=== PATIENT | female | born 1995 | race Two or more races ===

== ENCOUNTER 2017-11-22 06:20 | Emergency (ER) | payer OTHER, MEDICAID ==
[~2017-11-22] VITALS: Ht 157.5 cm; Wt 56.7 kg
[~2017-11-22 06:20] MED LIST: DIFLUCAN100 MG ORAL; DOXYCYCLINE MO100 MG ORAL; FLAGYL500 MG ORAL; KEFLEX500 MG ORAL; NITROFURANTOIN100 M2 ORAL
[2017-11-22 06:30] VITALS: BP 123/76
--- NOTE | 2017-11-22 06:40 | Emergency Room Report ---
History of Present Illness General Chief Complaint: Female Urogenital Problems Source: Patient Present Illness HPI Patient presents with suprapubic pain and dysuria. This started on Monday. She's had urinary tract infections in the past and also bacterial vaginosis. She also has some vaginal itching. She doesn't think she is . There's no fever and no back pain. The pain kept her awake this morning and was 8/10 suprapubic and nonradiating aching and with dysuria. She's taken Tylenol but none this morning. She doesn't use control. Last sexual encounter was 2 weeks ago. H/O PID in past. H/O trichomonas. No URI sy, cough, chest pain, NVD, extremity pain, headache. Allergies: Coded Allergies: No Known Allergies (Unverified , 10/29/14) verified Patient History Past Medical History: see triage record Social History: Denies: smoking Social History Narrative works at [employer] Last Menstrual Period: November 07 Now: No Reviewed Nursing Documentation: PMH: Agreed; PSxH: Agreed Nursing Documentation-PMH Past Medical History: No Stated History Hx Gastrointestinal Problems: No - PID 10/2014 Review of Systems Constitutional: Reports: see HPI Gastrointestinal: Reports: see HPI Genitourinary: Reports: see HPI Musculoskeletal: Reports: see HPI Skin: Denies: rash All Other Systems: negative except mentioned in HPI Physical Exam Vital Signs Date Time Temp Pulse Resp B/P (MAP) Pulse Ox O2 Delivery O2 Flow Rate FiO2 11/22/17 06:23 97.7 84 18 123/76 98 Room Air 97.7 General Appearance: well appearing, no apparent distress Head: normocephalic, atraumatic Eyes: bilateral eye normal inspection, bilateral eye PERRL ENT: hearing grossly normal, normal voice, moist mucus membranes Neck: full range of motion, supple Respiratory: no respiratory distress, speaking full sentences Cardiovascular #1: normal peripheral pulses Cardiovascular #2: 2+ radial (R) Gastrointestinal: normal inspection, normal bowel sounds, soft, no guarding, no rebound, scaphoid Genitourinary: no CVA tenderness, ext genitalia/vag normal, uterus normal, other - slight d/c yellow and white, no inflammation Musculoskeletal: no calf tenderness Neurologic: normal inspection, alert, normal gait, grossly normal Psychiatric: mood/affect normal Skin: no rash Medical Decision Making Diagnostic Impression: Primary Impression: UTI (urinary tract infection) Qualified Codes: N30.00 - Acute cystitis without hematuria ER Course The patient presents with dysuria and suprapubic pain. Differential includes UTI, bacterial vaginosis, pelvic inflammatory disease, ovarian cyst amongst others. She'll be evaluated with a urinalysis urine and wet mount. Pelvic exam will be performed. UA with pyuria. Wet prep negative. Based on pelvic exam, patient needs coverage for possible yeast. Improved and decreased pain. Patient stable for outpatient observation and treatment. Labs Test 11/22/17 06:28 Urine Color Pale yellow Urine Appearance Slightly cloudy Urine pH 6.5 (4.5-8.0) Urine Specific [place] 1.015 (1.005-1.035) Urine Protein 2+ (NEGATIVE) Urine Glucose (UA) Negative (NEGATIVE) Urine Ketones Negative (NEGATIVE) Urine Occult Blood 5+ (NEGATIVE) Urine Nitrite Negative (NEGATIVE) Urine Bilirubin Negative (NEGATIVE) Urine Urobilinogen Normal MG/DL (0.0-1.0) Urine Leukocyte Esterase 3+ (NEGATIVE) Urine RBC 20-30 /HPF (0 - 2) Urine WBC 30-40 /HPF (0 - 2) Urine Squamous Epithelial Cells Few /LPF (NONE/OCC) Urine Bacteria Few /HPF (NONE) Urine HCG, Qualitative Negative (NEGATIVE) Last Vital Signs Date Time Temp Pulse Resp B/P (MAP) Pulse Ox O2 Delivery O2 Flow Rate FiO2 11/22/17 08:25 97.7 75 18 120/72 98 Room Air 97.7 Status: improved Disposition: HOME, SELF-CARE Condition: Improved Scripts Clotrimazole (GYNE-LOTRIMIN*) 45 Gm Cream.appl 1 APPLIC VG QHS for 7 Days, #45 GM 0 Refills Prov: Serge Yadav M.D. 11/22/17 Phenazopyridine Hcl* (PYRIDIUM*) 100 Mg Tablet 100 MG ORAL THREE TIMES A DAY, #9 TAB Prov: Serge Yadav M.D. 11/22/17 Nitrofurantoin Monohyd/M-Cryst* (MACROBID 100 MG*) 100 Mg Capsule 100 MG ORAL EVERY 12 HOURS, #14 CAP Prov: Serge Yadav M.D. 11/22/17 Serge Yadav M.D. November 22, 2017 06:39
[2017-11-22 06:55] LABS: APPEARANCE,URINE SLIGHTLY CLOUDY; BILIRUBIN, URINE NEGATIVE (NEGATIVE); COLOR,URINE PALE YELLOW; GLUCOSE, URINE (UA) NEGATIVE (NEGATIVE); KETONES,URINE NEGATIVE (NEGATIVE); LEUKOCYTE ESTERASE ,URINE 3+ (NEGATIVE); NITRITE,URINE NEGATIVE (NEGATIVE); PH,URINE 6.5 (4.5-8.0); PROTEIN,URINE 2+ (NEGATIVE); UROBILINOGEN,URINE NORMAL MG/DL (0.0-1.0)
[2017-11-22] MEDS ORDERED: NITROFURANTOIN100 M2 ORAL (07:15)
[2017-11-22] MEDS ORDERED: PHENAZOPYRIDIN100 MG ORAL (07:15)
[2017-11-22] MEDS ORDERED: GYNE-LOTRIMIN45 GM VG (08:10)
[2017-11-22 08:25] VITALS: BP 120/72
== END 2017-11-22 08:26 | disposition home or self-care (01) ==
LOC: EMR 06:37
DX: N39.0 Urinary tract infection, site not specified (principal)
CPT/HCPCS: 81003; 81025; 87086; 87181; 87210; 99282

== ENCOUNTER 2018-02-20 13:42 | Emergency (ER) | payer MEDICAID, OTHER ==
[~2018-02-20] VITALS: Ht 160 cm; Wt 57.2 kg
[~2018-02-20 13:42] MED LIST changes: +GYNE-LOTRIMIN45 GM VG; +PHENAZOPYRIDIN100 MG ORAL
[2018-02-20 13:55] VITALS: BP 110/69
--- NOTE | 2018-02-20 14:06 | Emergency Room Report ---
History of Present Illness General Chief Complaint: Lower Back Pain or Injury Source: Patient Present Illness HPI 22-year-old female patient presents ER complaining of vaginal discharge for the past 3 days. Reports it is white in color, reports extreme pruritus. Also complains of dysuria during this time. Reports low back pain during this time. Denies acute injury or trauma. Denies fever, chest pain, shortness of breath , abdominal pain, vomiting. Denies hematuria. Reports last menstrual period was normal for her. Reports recently tested for STI, tests were negative. Reports last menstrual period was normal for her. Allergies: Coded Allergies: No Known Allergies (Unverified , 10/29/14) verified Patient History Past Medical History: see triage record Last Menstrual Period: 01/28/18 Now: No Reviewed Nursing Documentation: PMH: Agreed; PSxH: Agreed Nursing Documentation-PMH Past Medical History: No Stated History Hx Gastrointestinal Problems: No - PID 10/2014 Review of Systems All Other Systems: negative except mentioned in HPI Physical Exam Vital Signs Date Time Temp Pulse Resp B/P (MAP) Pulse Ox O2 Delivery O2 Flow Rate FiO2 02/20/18 13:52 98.7 77 18 112/72 96 Room Air 98.8 Sp02 EP Interpretation: reviewed, normal General Appearance: well appearing, no apparent distress, alert, GCS 15, non- toxic Head: normocephalic, atraumatic Eyes: bilateral eye normal inspection, bilateral eye PERRL ENT: hearing grossly normal, normal pharynx, no angioedema, normal voice, uvula midline, moist mucus membranes Neck: full range of motion Respiratory: lungs clear, normal breath sounds, no rhonchi, no respiratory distress, no accessory muscle use, no wheezing, speaking full sentences Cardiovascular #1: regular rate, rhythm, no edema Gastrointestinal: non tender, soft, no mass, non-distended, no guarding, no rebound Genitourinary: no CVA tenderness Musculoskeletal: back normal, digits/nails normal, gait/station normal, normal range of motion, non-tender Neurologic: alert, oriented x3, responsive, motor strength/tone normal, SLR negative, sensory intact Psychiatric: mood/affect normal Skin: no rash Medical Decision Making PA Attestation Dr. Pina is my supervising Physician whom patient management has been discussed with. Diagnostic Impression: Primary Impression: UTI (urinary tract infection) Additional Impression: Yeast infection ER Course Pt presents to ED c/o vaginal discharge DDX considered but are not limited to cystitis, pyelonephritis, STI, vaginitis, , yeast infection, bacterial vaginosis. VITAL SIGNS are WNL, patient is afebrile. Ordered UA, urine and fluconazole. ER COURSE patient history consistent with yeast infection, will provide fluconazole in the ER. no recent injury or trauma, low back pain likely related to urinary symptoms, does not require x-ray at this time. UA results show positive bacteria, WBCs, and leukocyte esterase, indicate UTI, will treat with abx. urine negative. If concern for STI, followup with STI clinic for testing and treatment. Denies STI concern. back pain likely related to UTI. Patient is resting comfortably in chair, nontoxic appearing, in no acute distress. Patient states they feel better and is ready to go home. DISCHARGE -Rx provided for Keflex Patient is stable for discharge. Patient resting comfortably, in no acute distress, nontoxic appearing, talking without difficulty. Will provide with patient care instructions and any necessary prescriptions. Patient understands and agrees to treatment plan. Patient encouraged to drink plenty of fluids. Patient to take medication as instructed. Care plan and follow-up instructions provided. Patient questions asked and answered. Reports understanding and agreement to treatment plan. Patient instructed to follow-up with primary care provider in 3 - 5 days. ER precautions given. Patient instructed to return to ER immediately for any new or worsening of symptoms. Including but not limited to fever, abdominal pain , intractable vomiting. - Please note that this Emergency Department Report was dictated using [employer] review specialist technology software, occasionally this can lead to erroneous entry secondary to interpretation by the dictation equipment. Labs Test 02/20/18 14:12 Urine Color Pale yellow Urine Appearance Slightly cloudy Urine pH 7 (4.5-8.0) Urine Specific [place] 1.010 (1.005-1.035) Urine Protein Negative (NEGATIVE) Urine Glucose (UA) Negative (NEGATIVE) Urine Ketones Negative (NEGATIVE) Urine Occult Blood 2+ (NEGATIVE) Urine Nitrite Negative (NEGATIVE) Urine Bilirubin Negative (NEGATIVE) Urine Urobilinogen Normal MG/DL (0.0-1.0) Urine Leukocyte Esterase 3+ (NEGATIVE) Urine RBC 5-10 /HPF (0 - 2) Urine WBC 10-15 /HPF (0 - 2) Urine Squamous Epithelial Cells Moderate /LPF (NONE/OCC) Urine Bacteria Moderate /HPF (NONE) Urine HCG, Qualitative Negative (NEGATIVE) Last Vital Signs Date Time Temp Pulse Resp B/P (MAP) Pulse Ox O2 Delivery O2 Flow Rate FiO2 02/20/18 13:52 98.7 77 18 112/72 96 Room Air 98.8 Disposition: HOME, SELF-CARE Condition: Stable Scripts Cephalexin* (KEFLEX*) 500 Mg Capsule 500 MG ORAL EVERY 12 HOURS, #14 CAP 0 Refills Prov: Jeremias Yuan 02/20/18 Patient Instructions: Urinary Tract Infection, [id number], Vaginal Yeast Infection, Adult Additional Instructions: Followup with primary care provider and followup with and/or OBGYN. Drink plenty of fluids. Take medications as directed. Patient questions asked and answered. ER precautions given, patient instructed to return to ER immediately for any new or worsening of symptoms. Jeremias Yuan Feb 20, 2018 14:06
[2018-02-20] MEDS ORDERED: Fluconazole 100mg tab ORAL ONE (14:15)
[2018-02-20 14:55] LABS: APPEARANCE,URINE SLIGHTLY CLOUDY; BILIRUBIN, URINE NEGATIVE (NEGATIVE); COLOR,URINE PALE YELLOW; GLUCOSE, URINE (UA) NEGATIVE (NEGATIVE); KETONES,URINE NEGATIVE (NEGATIVE); LEUKOCYTE ESTERASE ,URINE 3+ (NEGATIVE); NITRITE,URINE NEGATIVE (NEGATIVE); PH,URINE 7 (4.5-8.0); PROTEIN,URINE NEGATIVE (NEGATIVE); UROBILINOGEN,URINE NORMAL MG/DL (0.0-1.0)
[2018-02-20] MEDS ORDERED: CEPHALEXIN500 MG ORAL (15:43)
[2018-02-20 15:49] VITALS: BP 102/66
== END 2018-02-20 15:53 | disposition home or self-care (01) ==
LOC: EMR 15:09
DX: N39.0 Urinary tract infection, site not specified (principal); B37.9 Candidiasis, unspecified
CPT/HCPCS: 81003; 81025; 87086; 99283

== ENCOUNTER 2018-03-12 16:14 | Emergency (ER) | payer MEDICAID ==
[~2018-03-12] VITALS: Ht 160 cm; Wt 57.2 kg
[~2018-03-12 16:14] MED LIST changes: +CEPHALEXIN500 MG ORAL
[2018-03-12 16:27] VITALS: BP 115/79
[2018-03-12 16:55] LABS: APPEARANCE,URINE CLEAR; BILIRUBIN, URINE 1+ (NEGATIVE); COLOR,URINE BROWN; GLUCOSE, URINE (UA) NEGATIVE (NEGATIVE); KETONES,URINE 1+ (NEGATIVE); LEUKOCYTE ESTERASE ,URINE 2+ (NEGATIVE); NITRITE,URINE NEGATIVE (NEGATIVE); PH,URINE 5 (4.5-8.0); PROTEIN,URINE 3+ (NEGATIVE); UROBILINOGEN,URINE 1 MG/DL (0.0-1.0)
[2018-03-12] MEDS ORDERED: Azithromycin 250mg tab ORAL ONE (17:15)
[2018-03-12] MEDS ORDERED: Lidocaine 1% MPF 10mg/ml 5ml INJ ONE (17:15)
--- NOTE | 2018-03-12 17:19 | Emergency Room Report ---
History of Present Illness General Chief Complaint: Female Urogenital Problems Source: Patient Present Illness [facility] This patient complains of 2 days of dysuria and hematuria. She was recently treated with antibiotics for urinary tract infection 2 weeks ago. She states she's had multiple urinary tract infections over the past 6 months. She is sexually active. She states she's been with the same partner for the past 6 years. She does not believe that there is been any infidelity. She denies pelvic pain. She denies fever or chills. She denies abnormal vaginal discharge. She has no other complaints. Allergies: Coded Allergies: No Known Allergies (Unverified , 10/29/14) verified Patient History Past Medical History: none Social History: Denies: smoking, alcohol use, drug use Last Menstrual Period: 02/28/18 Now: No Reviewed Nursing Documentation: PMH: Agreed; PSxH: Agreed Nursing Documentation-PMH Past Medical History: No Stated History Hx Gastrointestinal Problems: No - PID 10/2014 Review of Systems All Other Systems: negative except mentioned in HPI Physical Exam Vital Signs Date Time Temp Pulse Resp B/P (MAP) Pulse Ox O2 Delivery O2 Flow Rate FiO2 03/12/18 16:17 98.3 91 17 115/79 98 Room Air 98.2 Sp02 EP Interpretation: reviewed, normal General Appearance: no apparent distress, alert, GCS 15, non-toxic Head: normocephalic, atraumatic Eyes: bilateral eye normal inspection, bilateral eye PERRL ENT: hearing grossly normal, normal pharynx, no angioedema, normal voice Neck: full range of motion, supple/symm/no masses Respiratory: no respiratory distress, no retraction, no accessory muscle use, speaking full sentences Rectal: deferred Musculoskeletal: back normal, gait/station normal, normal range of motion, non- tender Neurologic: alert, oriented x3, responsive, motor strength/tone normal, sensory intact, speech normal Psychiatric: judgement/insight normal, memory normal, mood/affect normal, no suicidal/homicidal ideation Skin: normal color, no rash, warm/dry, well hydrated Medical Decision Making Diagnostic Impression: Primary Impression: UTI (urinary tract infection) ER Course This patient has had multiple urinary tract infections over the past 6 months. I'm concerned she has an undiagnosed sexually transmitted infection. Further discussion with this patient and she agreed to undergo treatment for gonorrhea and chlamydia. She was educated that her partner would need to be treated in order to remain unaffected. She indicated understanding. I have a low suspicion for PID given the patient's history and exam findings. Overall, the patient is nontoxic and well-appearing. I will also treat her for a urinary tract infection. She is given return precautions and follow-up instructions. Laboratory Tests Test 03/12/18 16:20 Urine Color Brown Urine Appearance Clear Urine pH 5 (4.5-8.0) Urine Specific [place] 1.020 (1.005-1.035) Urine Protein 3+ (NEGATIVE) H Urine Glucose (UA) Negative (NEGATIVE) Urine Ketones 1+ (NEGATIVE) H Urine Blood 5+ (NEGATIVE) H Urine Nitrite Negative (NEGATIVE) Urine Bilirubin 1+ (NEGATIVE) H Urine Ictotest Negative (NEGATIVE) Urine Urobilinogen 1 MG/DL (0.0-1.0) H Urine Leukocyte Esterase 2+ (NEGATIVE) H Urine RBC 10-15 /HPF (0 - 2) H Urine WBC 5-10 /HPF (0 - 2) H Urine Squamous Epithelial Cells Moderate /LPF (NONE/OCC) H Urine Bacteria Moderate /HPF (NONE) H Urine HCG, Qualitative Negative (NEGATIVE) Last Vital Signs Date Time Temp Pulse Resp B/P (MAP) Pulse Ox O2 Delivery O2 Flow Rate FiO2 03/12/18 16:27 98.2 17 115/79 98 Room Air 98.2 03/12/18 16:17 91 Status: improved Disposition: HOME, SELF-CARE Condition: Improved Patient Instructions: Urinary Tract Infection Mckenzie Andrea DO Mar 12, 2018 17:19
[2018-03-12] MEDS ORDERED: FLUCONAZOLE100 MG ORAL (17:40)
[2018-03-12] MEDS ORDERED: NITROFURANTOIN100 M2 ORAL (17:40)
[2018-03-12 17:46] VITALS: BP 11/80
== END 2018-03-12 17:46 | disposition home or self-care (01) ==
LOC: EMR 16:35
DX: N39.0 Urinary tract infection, site not specified (principal); R31.9 Hematuria, unspecified
CPT/HCPCS: 81003; 81025; 87086; 96372; 96374; 99284; J0696; Q0144

== ENCOUNTER 2018-09-26 20:30 | Emergency (ER) | payer MEDICAID ==
[~2018-09-26] VITALS: Ht 157.5 cm; Wt 56.7 kg
[~2018-09-26 20:30] MED LIST changes: +FLUCONAZOLE100 MG ORAL
[2018-09-26 20:47] VITALS: BP 122/78
[2018-09-26] MEDS ORDERED: PREDNISONE20 MG ORAL (21:12)
[2018-09-26] MEDS ORDERED: VALACYCLOVIR500 MG ORAL (21:12)
--- NOTE | 2018-09-26 21:13 | Emergency Room Report ---
History of Present Illness General Chief Complaint: Generalized Weakness Source: Patient Present Illness [facility] This is a 22-year-old female with no past medical history. She presents with chief complaint of right facial weakness. Onset around 3 PM. No fever chills but no nausea no vomiting. No drooping her right face. No pain. No cough or congestion. No other focal deficit. Allergies: Coded Allergies: No Known Allergies (Unverified , 10/29/14) verified Patient History Past Medical History: see triage record, old chart reviewed Past Surgical History: none Pertinent Family History: none Social History: Denies: smoking Last Menstrual Period: 09/22/18 Now: No Immunizations: other Reviewed Nursing Documentation: PMH: Agreed; PSxH: Agreed Nursing Documentation-PMH Past Medical History: No History, Except For Hx Asthma: Yes Hx Gastrointestinal Problems: No - PID 10/2014 Review of Systems Eye: Denies: eye pain, blurred vision ENT: Denies: ear pain, nose congestion, throat swelling Respiratory: Denies: cough, shortness of breath Cardiovascular: Denies: chest pain, palpitations Gastrointestinal: Denies: abdominal pain, diarrhea, nausea, vomiting Musculoskeletal: Denies: back pain, joint pain Skin: Denies: rash Neurological: Denies: headache, numbness Endocrine: Denies: increased thirst, increased urine Hematologic/Lymphatic: Denies: easy bruising All Other Systems: negative except mentioned in HPI Physical Exam Vital Signs Date Time Temp Pulse Resp B/P (MAP) Pulse Ox O2 Delivery O2 Flow Rate FiO2 09/26/18 20:34 98.2 90 16 122/78 97 Room Air vitals normal Sp02 EP Interpretation: reviewed, normal General Appearance: well appearing, no apparent distress, alert Head: normocephalic, atraumatic Eyes: bilateral eye PERRL, bilateral eye EOMI ENT: hearing grossly normal, normal pharynx Neck: full range of motion, supple, no meningismus Respiratory: chest non-tender, lungs clear, normal breath sounds Cardiovascular #1: regular rate, rhythm, no murmur Gastrointestinal: normal bowel sounds, non tender, no mass, no organomegaly, no bruit, non-distended Musculoskeletal: back normal, gait/station normal, normal range of motion Neurologic: alert, oriented x3, facial droop - Loading forehead on right Psychiatric: mood/affect normal Skin: warm/dry Medical Decision Making Diagnostic Impression: Primary Impression: Means's palsy ER Course Patient with Means's palsy. No evidence of TIA or CVA. We'll discharge home. Last Vital Signs Date Time Temp Pulse Resp B/P (MAP) Pulse Ox O2 Delivery O2 Flow Rate FiO2 09/26/18 20:47 90 16 Room Air 09/26/18 20:47 98.2 122/78 97 Status: unchanged Disposition: HOME, SELF-CARE Condition: Stable Scripts Prednisone* (PREDNISONE*) 20 Mg Tablet 60 MG ORAL DAILY, #21 TAB Prov: Ryan Bello MD 09/26/18 Valacyclovir Hcl* (VALTREX*) 500 Mg Tablet 1000 MG ORAL TID for 7 Days, TAB Prov: Ryan Bello MD 09/26/18 Additional Instructions: Follow-up with your doctor in 7 days for recheck. Return if symptom worsen. Ryan Bello MD Sep 26, 2018 21:13
[2018-09-26 21:23] VITALS: BP 127/77
== END 2018-09-26 21:22 | disposition home or self-care (01) ==
LOC: EMR 21:10
DX: G51.0 Bell's palsy (principal)
CPT/HCPCS: 99282; J7512

== ENCOUNTER 2020-09-05 00:27 | Emergency (ER) | payer SELFPAY ==
[~2020-09-05] VITALS: Ht 157.5 cm; Wt 56.7 kg
[~2020-09-05 00:27] MED LIST changes: +PREDNISONE20 MG ORAL; +VALACYCLOVIR500 MG ORAL
[2020-09-05 00:32] VITALS: BP 120/81
--- NOTE | 2020-09-05 00:50 | Emergency Room Report ---
History of Present Illness General Chief Complaint: Vaginal Source: Patient Present Illness [facility] This is a 24-year-old female with a history of recurring urinary tract infection. She presents with chief complaint of pelvic pain with urgency frequency and hematuria. Onset tonight. She just finished a course of Macrobid 2 weeks ago for urinary tract infection. She took Pyridium tonight. That helped some. No nausea no vomiting. No fever chills. Does have lower back pain. Denies any upper back pain. Pain is 8 out of 10. Worse with urination. Better with rest. Allergies: Coded Allergies: No Known Allergies (Unverified , 10/29/14) verified COVID-19 Screening Contact w/high risk pt: No Experienced COVID-19 symptoms?: No COVID-19 Testing performed TAPPER BIT: No Patient History Past Medical History: see triage record, old chart reviewed Past Surgical History: none Pertinent Family History: none Last Menstrual Period: aug 30 Now: No Immunizations: other Reviewed Nursing Documentation: PMH: Agreed; PSxH: Agreed Nursing Documentation-PMH Hx Asthma: Yes Hx Gastrointestinal Problems: No - PID 10/2014 Review of Systems Eye: Denies: eye pain, blurred vision ENT: Denies: ear pain, nose congestion, throat swelling Respiratory: Denies: cough, shortness of breath Cardiovascular: Denies: chest pain, palpitations Gastrointestinal: Denies: abdominal pain, diarrhea, nausea, vomiting Genitourinary: Reports: dysuria, frequency, hematuria Musculoskeletal: Denies: back pain, joint pain Skin: Denies: rash Neurological: Denies: headache, numbness Endocrine: Denies: increased thirst, increased urine Hematologic/Lymphatic: Denies: easy bruising All Other Systems: negative except mentioned in HPI Physical Exam Vital Signs Date Time Temp Pulse Resp B/P (MAP) Pulse Ox O2 Delivery O2 Flow Rate FiO2 09/05/20 00:32 97.9 71 18 120/81 (94) 97 Vitals normal Sp02 EP Interpretation: reviewed, normal General Appearance: well appearing, no apparent distress, alert Head: normocephalic, atraumatic Eyes: bilateral eye PERRL, bilateral eye EOMI ENT: hearing grossly normal, normal pharynx Neck: full range of motion, supple, no meningismus Respiratory: chest non-tender, lungs clear, normal breath sounds Cardiovascular #1: regular rate, rhythm, no murmur Gastrointestinal: normal bowel sounds, non tender, no mass, no organomegaly, no bruit, non-distended Musculoskeletal: back normal, normal range of motion, gait/station normal Psychiatric: mood/affect normal Medical Decision Making Diagnostic Impression: Primary Impression: UTI (urinary tract infection) Qualified Codes: N30.01 - Acute cystitis with hematuria ER Course This patient presents with symptom consistent with urinary tract infection. She grew out E. coli in the past that is pansensitive. Will switch antibiotic class to Keflex. No evidence of sepsis, bacteremia or pyelonephritis. Explained to the patient that she may need reflux study to see if there is any reflux or incompetent valves of her ureter. Will discharge home. Last Vital Signs Date Time Temp Pulse Resp B/P (MAP) Pulse Ox O2 Delivery O2 Flow Rate FiO2 09/05/20 00:32 97.9 71 18 120/81 (94) 97 Status: improved Disposition: HOME, SELF-CARE Condition: Stable Scripts Ibuprofen* (MOTRIN*) 600 Mg Tablet 600 MG ORAL Q6H PRN for For Pain, #30 TAB 0 Refills Prov: Ryan Bello MD 09/05/20 Cephalexin* (KEFLEX*) 500 Mg Capsule 500 MG ORAL TID, #21 CAP Prov: Ryan Bello MD 09/05/20 Additional Instructions: Increase fluids. Continue with your Azo as needed. Follow-up with your doctor in 7 days. I recommend getting an ultrasound to check for reflux or strictures or any other anatomy problem of your urinary system. Return if symptoms worsen. Ryan Bello MD Sep 05, 2020 00:50
[2020-09-05] MEDS ORDERED: IBUPROFEN600 M1 ORAL (00:52)
[2020-09-05] MEDS ORDERED: Cephalexin 500mg cap ONE (00:52)
[2020-09-05] MEDS ORDERED: CEPHALEXIN500 MG ORAL (00:52)
[2020-09-05 00:55] VITALS: BP 120/81
--- NOTE | 2020-09-05 00:56 | NUR ---
pt aox3 given and understands dsischarge instructions. ambulatory out w steady gait
--- NOTE | 2020-09-05 00:56 | NUR ---
pt medicated per mar
[2020-09-05] MEDS ORDERED: Cephalexin 500mg cap ORAL ONE (01:00)
[2020-09-05] MEDS ORDERED: FLUCONAZOLE150 MG ORAL (01:00)
== END 2020-09-05 01:05 | disposition home or self-care (01) ==
LOC: EMR 00:45
DX: N30.01 Acute cystitis with hematuria (principal); J45.909 Unspecified asthma, uncomplicated
CPT/HCPCS: 99282